=== PATIENT | female | born 1955 | race Caucasian/White ===

== ENCOUNTER 2023-02-03 09:44 | Day surgery (SDC) | payer MEDICARE ==
[2023-02-02 10:00] VITALS: BMI 31.5
[2023-02-03] MEDS ORDERED: EPINEPHrine 1 MG/ML VIAL ONE (10:29)
[2023-02-03] MEDS ORDERED: Bupivacaine 0.25% HCL 30 ML VIAL ONE (10:29)
[2023-02-03 10:30] LABS: Anion Gap 14 mmol/L (10-20); BUN (Urea Nitrogen) 21 mg/dL (9.8-20.1); Calc. Creatinine Clearance 90 mL/min (70-130); Calcium 10.2 mg/dL (7.8-10.44); Carbon Dioxide 24 mmol/L (23-31); Chloride 106 mmol/L (98-107); Estimated GFR 85; Glucose 92 mg/dL (80-115); Sodium 140 mmol/L (136-145)
[2023-02-03] MEDS ORDERED: Lidocaine 2% 6 ML (Jelly) SYR ONE ×2 (10:31)
[2023-02-03] MEDS ORDERED: PROPOFOL 20 ML ONE (11:57)
[2023-02-03] MEDS ORDERED: fentaNYL 50 mcg/mL 1 mL Vial ONE (11:58)
[2023-02-03] MEDS ORDERED: Lidocaine 1% PF 5 ML VIAL ONE (11:58)
[2023-02-03] MEDS ORDERED: Ondansetron PF 4 MG/2 ML Vial ONE (11:58)
[2023-02-03] MEDS ORDERED: Dexamethasone 4 mg/ml Vial ONE (11:58)
[2023-02-03] MEDS ORDERED: ceFOXitin 1 GM VIAL ONE (12:44)
== END 2023-02-03 15:10 | disposition home or self-care (01) ==
LOC: CSHSDC 09:44
PROVIDERS: ATTEND Surgery
PROC: 06BY0ZC Excision of Hemorrhoidal Plexus, Open Approach (ICD-10-PCS; principal; 2023-02-03)
DX: K64.3 Fourth degree hemorrhoids (principal); K64.4 Residual hemorrhoidal skin tags; I10 Essential (primary) hypertension; E03.9 Hypothyroidism, unspecified; G47.33 Obstructive sleep apnea (adult) (pediatric); Z88.1 Allergy status to other antibiotic agents; Z91.018 Allergy to other foods; Z79.899 Other long term (current) drug therapy; Z79.890 Hormone replacement therapy; Z90.49 Acquired absence of other specified parts of digestive tract
CPT/HCPCS: 46260; 80048; 93005; J0171; J3010; 36415; 88304; 93010; J0694; J1100; J2405; J2704; S0020